=== PATIENT | male | born 1955 | race Caucasian/White ===

== ENCOUNTER 2021-05-30 05:57 | Day surgery (SDC) | payer MEDICARE ==
[~2021-05-30] VITALS: Ht 175.3 cm; Wt 73.6 kg
[2021-05-30 06:10] VITALS: BP 139/86
[2021-05-30] MEDS ORDERED: fentaNYL/PF 50MCG/1 ML 2ML syringe ONE (06:11)
[2021-05-30] MEDS ORDERED: MIDAZolam 1 MG/ML 5ML VIAL ONE (06:11)
[2021-05-30] MEDS ORDERED: SIMV10TA98 PO (06:30)
[2021-05-30] MEDS ORDERED: ASPI-1053 PO (06:31)
[2021-05-30 09:08] VITALS: BP 110/69
[2021-05-30 09:18] VITALS: BP 120/69
[2021-05-30 09:28] VITALS: BP 128/73
[2021-05-30 09:38] VITALS: BP 108/72
[2021-05-31] MEDS ORDERED: MULT-1085 PO (09:23)
[2021-05-31] MEDS ORDERED: CHOL400T57 PO (09:23)
== END 2021-05-30 09:50 | disposition home or self-care (01) ==
LOC: GI LAB 05:57
PROVIDERS: ATTEND Surgery
DX: R19.5 Other fecal abnormalities (principal); D12.5 Benign neoplasm of sigmoid colon; D12.2 Benign neoplasm of ascending colon; K63.5 Polyp of colon; K57.30 Diverticulosis of large intestine without perforation or abscess without bleeding; Z79.899 Other long term (current) drug therapy; Z79.82 Long term (current) use of aspirin
CPT/HCPCS: 45380; 45385; 99153; C1773; G0500; J2250; J3010; J7040; Z7512; 99152; A4620

== ENCOUNTER 2021-06-06 05:30 | Day surgery (SDC) | payer MEDICARE ==
[2021-05-31 09:53] LABS: BASOPHILS % (AUTO) 0.7 % (0-1); EOSINOPHILS # (AUTO) 0.1 X10'3 (0-0.9); EOSINOPHILS % (AUTO) 1.1 % (0-6); LYMPHOCYTES # (AUTO) 1.5 X10'3 (1.1-4.8); MEAN CORPUSCULAR HEMOGLOBIN 28.1 PG (27.0-31.0); MEAN PLATELET VOLUME 9.7 FL (7.4-10.4); MONOCYTES # (AUTO) 0.5 X10'3 (0-0.9); MONOCYTES % (AUTO) 8.3 % (2-12); NEUTROPHILS # (AUTO) 4.3 X10'3 (1.8-7.7); NEUTROPHILS % (AUTO) 66.9 % (42-75); PRE OP HEMATOCRIT 44.2 % (42.0-52.0); PRE OP HEMOGLOBIN 14.6 g/dL (14.0-17.9); PRE OP PLATELET COUNT 220 X10'3 (140-440); RED BLOOD COUNT 5.19 X10'6 (4.70-6.10)
[2021-05-31 11:30] LABS: ALBUMIN 3.8 G/DL (3.4-5.0); ALBUMIN/GLOBULIN RATIO 1.4 (1.1-1.5); ALKALINE PHOSPHATASE 71 IU/L (46-116); BLOOD UREA NITROGEN 16 MG/DL (7-18); CALCIUM 9.3 MG/DL (8.5-10.1); CHLORIDE 105 MMOL/L (99-107); CREATININE 1.23 MG/DL (0.60-1.10); PRE OP ALT 30 U/L (30-65); PRE OP ANION GAP 9 (8-16); PRE OP AST 21 U/L (10-37); PRE OP BILIRUB, TOTAL 0.4 MG/DL (0.0-1.0); PRE OP GLUCOSE 101 MG/DL (70-104); PRE OP POTASSIUM 4.6 MMOL/L (3.4-5.1); PRE OP SODIUM 143 MMOL/L (135-145); TOTAL CARBON DIOXIDE 28.8 MMOL/L (24-32); TOTAL PROTEIN 6.6 G/DL (6.4-8.2); eGFR 59 ML/MIN
[~2021-06-06] VITALS: Ht 175.3 cm; Wt 75.9 kg
[2021-06-06] VITALS (15 sets, daily range): BP systolic 121–150; BP diastolic 65–86
[~2021-06-06 05:30] MED LIST: ASPI-1053 PO; CHOL400T57 PO; MULT-1085 PO; SIMV10TA98 PO; cefazolin/dext.iso 2gm/50ml IV ONE; famotidine 20mg tablet PO ONE; ringers solution, lacted 1,000 ML IV SCH
[2021-06-06] MEDS ORDERED: BUPIVAcaine 0.5% inj/PF 30 ML ONE (07:07)
[2021-06-06] MEDS ORDERED: LIDOcaine 1% 30ml preserv. free vial ONE (07:07)
[2021-06-06] MEDS ORDERED: ondansetron/PF 4mg/2ml inj IV PRN (07:30)
[2021-06-06] MEDS ORDERED: acetaminophen 1,000mg/100ml IV 100 ML IV PRN (07:30)
[2021-06-06] MEDS ORDERED: hydrALAZINE 20mg/ml inj. IV PRN (07:30)
[2021-06-06] MEDS ORDERED: morphine 2 MG/ML inj. syringe IV PRN (07:30)
[2021-06-06] MEDS ORDERED: ringers solution, lacted 1,000 ML IV SCH (07:30)
[2021-06-06] MEDS ORDERED: proCHLORperazine 10 MG/2 ml inj IV PRN (07:30)
[2021-06-06] MEDS ORDERED: meperidine/PF 25mg/ml syringe IV PRN ×3 (07:30)
[2021-06-06] MEDS ORDERED: morphine 4 MG/ML inj SYRINge IV PRN (07:30)
[2021-06-06] MEDS ORDERED: labetalol 20mg/4ml (5mg/ml) syringe IV PRN (07:30)
[2021-06-06] MEDS ORDERED: midazolam 1 mg/ML 2ml injection ONE (07:35)
[2021-06-06] MEDS ORDERED: fentaNYL /PF 50mcg/ml 5ml ampule ONE (07:35)
[2021-06-06] MEDS ORDERED: LIDOcaine 2% (20mg/ml) 5ml vial ONE (08:05)
[2021-06-06] MEDS ORDERED: dexamethasone sod phosphate 4mg/ml inj. ONE (08:05)
[2021-06-06] MEDS ORDERED: propofol inj 20 ML IV ONE (08:05)
[2021-06-06] MEDS ORDERED: rocuronium 10mg/ml inj IV ONE (08:05)
[2021-06-06] MEDS ORDERED: ePHEDrine 50MG/ML INJ. ONE (08:05)
[2021-06-06] MEDS ORDERED: ondansetron/PF 4mg/2ml inj ONE (08:05)
[2021-06-06] MEDS ORDERED: BUPIVAcaine 0.5% inj/PF 30 ml vial IJ ONE (08:10)
[2021-06-06] MEDS ORDERED: neostigmine methylsulfate 1 MG/ML 10ml vial ONE (08:49)
[2021-06-06] MEDS ORDERED: glycopyrrolate 0.2mg/ml inj ONE (08:49)
--- NOTE | 2021-06-06 09:18 | NUR ---
Received from OR via rosa, accompanied by Anesthesiologist [place] and report given by Anesthesiolgist. VS WNL and sats 100%. 20G right wrist, lap sites with band aids x3 CDI. Responding to questions but drwosy. No pain. Mask to 15L.
[2021-06-06] MEDS ORDERED: HYDROcodone/acetaminophen 5mg/325mg tablet PO PRN (09:30)
--- NOTE | 2021-06-06 11:10 | NUR ---
Pt attempted to void, only a dribble, Dr Cosby spoke with patient and said he can try a bit longer but then recommends a 24 hour catheter if he isn't able to void. Pt compliant and agreeable. Patient moved back to [facility] for waiting period. remains in waiting room and knows it may be some more time.
--- NOTE | 2021-06-06 14:05 | NUR ---
PT ARRIVED TO PAS UNIT AT 1115. VSS. DENIES PAIN. IV RT WRIST SL. ABD SOFT. BANDAIDS TO ABD CDI. PT OFFERED PO FLUIDS AND SNACK, UP AMBULATING HALLWAY. AWAITING STREAM OF URINE BRP FOR DISCHARGE. PT STATES D/C INSTRUCTIONS WERE REVIEWED BY SOCIAL SERVICE TECHNICIAN AND NO QUESTIONS AT THIS TIME. IS PRESENT. (1230) UNABLE TO VOID FULL STREAM, ONLY "DRIBBLE". BLADDER SCAN WITH 249MLS PRESENT. PT CONTINUES TO WALK THE HALLWAY AND BRP NEEDED. (1330)CONT UNABLE TO VOID FULL STREAM. BLADDER SCAN WITH 495 MLS PRESENT. PT CONSENTS TO HAIR CATH ORDERED. FC #[id number] PLACED WITH 10ML BALLOON WITHOUT DIFFICULTY WITH 625ML CLEAR YELLOW URINE RETURN. STAT-LOCK AND LEG BAG APPLIED. HAIR CARE INSTRUCTIONS REVIEWED WITH PT AND WHO VERBALIZED UNDERSTANDING. APPT MADE WITH DR LOPEZ'S OFFICE 06/07 AT 8:30AM FOR HAIR REMOVAL. DENIES PAIN. ABD SOFT, BANDAIDS CDI. DC HOME WITH ALL PERSONAL BELONGINGS VIA W/C TO PVT AUTO WITH PRESENT. Addendum: 06/06/21 at 1441 by Dorota Valerio RN Amended: Links added.
== END 2021-06-06 14:05 | disposition home or self-care (01) ==
LOC: PAS 05:30 → EDUNIT# 07:30 → PAS 14:05
PROVIDERS: ATTEND Surgery
DX: K40.90 Unilateral inguinal hernia, without obstruction or gangrene, not specified as recurrent (principal); K66.0 Peritoneal adhesions (postprocedural) (postinfection); E78.5 Hyperlipidemia, unspecified; Z20.822 Contact with and (suspected) exposure to COVID-19; Z79.899 Other long term (current) drug therapy; Z85.828 Personal history of other malignant neoplasm of skin; Z86.718 Personal history of other venous thrombosis and embolism; Z79.82 Long term (current) use of aspirin; Z72.89 Other problems related to lifestyle; Z87.891 Personal history of nicotine dependence; Z83.6 Family history of other diseases of the respiratory system; Z83.3 Family history of diabetes mellitus
CPT/HCPCS: 36415; 49650; 80053; 82948; 85025; 93005; C1781; J0690; J1100; J2250; J2405; J2704; J2710; J3010; J3490; J7030; J7120; S0020; U0003; U0005; Z7506; Z7508; Z7512; A4215; A4618